=== PATIENT | female | born 1995 | race Caucasian/White ===

== ENCOUNTER → 2019-02-04 | Outpatient (CLI) | payer OTHER ==
[2019-02-04 10:18] VITALS: BP 104/70; PULSE 78; RESP 16; TEMP 98.3; BMI 25.0
--- NOTE | 2019-02-04 10:29 | P.GSHP ---
History of Present Illness H&P Date: 02/04/19 Chief Complaint: right breast mass Brooke is a 23 year old female with a complaint of a mass in her right breast. She noticed a lump in her right breast approximately 2 months ago which is still present. She states that it does not change with her periods in size. And she believes it has increased in size. She did have an ultrasound of the right breast performed on . This did not reveal any specific solid or cystic mass at this site. She states that the right side is uncomfortable all the time and has increased in size over the left side. She has no history of any trauma or infection in her breast. She does not drink any caffeine. She smokes 1/2 PPD, she has been smoking for 6 years. She is exposed is second hand smoke. She eats chocolate every day. she has not noted any correlation between her periods and her breast. The patient has bilateral nipple piercing, she has never had any infections related to the piercing. Family history: none Hormonal History: menarche: 11 G0 periods regular: LMP January 10 BCP: none hormones: none Past surgical history: 1. Tubes in her ears 2. Tonsillectomy Medical history: 1.none Social history: Smoking: One half pack per day Alcohol: Used to drink liquor every day; states a lot: has not had anything for a month Drugs: Occasional marijuana - Constitutional Constitutional: Denies chills, Denies fever - EENT Eyes: denies blurred vision, denies pain Ears: deny: decreased hearing, tinnitus Ears, nose, mouth and throat: Denies headache, Denies sore throat - Breasts Breasts: bilateral: as per HPI - Cardiovascular Cardiovascular: Denies chest pain, Denies shortness of breath - Respiratory Comment: smoker - Gastrointestinal Gastrointestinal: Denies abdominal pain, Denies diarrhea, Denies nausea, Denies vomiting - Genitourinary (Female) Genitourinary: Denies dysuria, Denies hematuria - Menstruation Menstruation: Reports period normal - Musculoskeletal Musculoskeletal: Denies myalgias - Integumentary Comment: multiple tattoos Integumentary: Denies pruritus, Denies rash - Neurological Neurological: Denies numbness, Denies weakness - Psychiatric Psychiatric: Reports anxiety, Denies depression - Endocrine Endocrine: Reports weight change, Denies fatigue - Hematologic/Lymphatic Comment: none - Allergic/Immunologic Allergic/Immunologic: Reports as per HPI Surgical - Exam BMI 25 - General well developed, well nourished, no distress - Eyes normal ocular movement - ENT normal pinna, no hearing loss - Neck no masses, trachea midline - Respiratory normal respiratory effort, clear to auscultation - Cardiovascular Rhythm: regular Heart Sounds: normal: S1, S2 - Abdomen Abdomen: soft, non tender, no guarding, no rigid, no rebound - Integumentary multiple tatoos - Musculoskeletal normal gait, normal posture - Psychiatric oriented to time, oriented to person, oriented to place, speech is normal, memory intact breast exam: Right breast: Multiple positional exam of the right breast reveals fibrocystic changes, the right breast has slightly more glandular tissue apparent in the left was some increased fullness/nodularity in the upper outer quadrant area. This appears to be consistent with fibrocystic changes Right axilla: No adenopathy of concern Left breast: Multi-positional exam fibrocystic changes, no discrete dominant masses or nodules of concern Left axilla: No adenopathy of concern Patient has bilateral nipple. Seen without any evidence of any infection The breast are asymmetric with the right being slightly larger than the left Bra 36B Results Ultrasound report reviewed Assessment and Plan Assessment: Impression: 1. Asymmetry of the breast 2. Nodularity right breast upper outer quadrant area consistent with fibrocystic changes 3. Bilateral nipple piercing 4. Nicotine dependence 5. Anxiety 6. No radiographic evidence of malignancy 7. Suspect the nodularity in the right breast is associated with fibrocystic changes recommend FNA to confirm this and close surveillance Plan: 1. FNA right breast area of increased nodularity 2. Follow-up for results of FNA if this is benign would recommend that the patient be seen again in 6 months time for close surveillance, if patient notes any changes will see sooner CC: Dr. Cheng
--- NOTE | 2019-02-04 10:34 | P.PCN ---
Date of Procedure: 02/04/19 Preoperative Diagnosis: Increased nodularity right breast upper outer quadrant Postoperative Diagnosis: same Procedure(s) Performed: FNA right breast Surgeon: Tonya Martinez Pathology: other (Cytology from 11 o'clock position right breast) Condition: stable Disposition: same day Indications for Procedure: Increased nodularity 11 o'clock position right breast Description of Procedure: The area in the right breast was prepped using alcohol. A 22-gauge needle on a 10 mL syringe was inserted into the area. Applying vacuum several passes were made and cells were obtained. The cells were prepped for pathology. The patient tolerated procedure in stable condition. A sterile Band-Aid was appli ed. The patient will follow next week for results.
== END ==
LOC: WWCWWP 10:02
PROVIDERS: ATTEND Surgery
DX: N63.11 Unspecified lump in the right breast, upper outer quadrant (principal)
CPT/HCPCS: 88173

== ENCOUNTER → 2022-08-13 | Outpatient (CLI) | payer OTHER | END | disposition home or self-care (01) | LOC: RADXRMAIN 16:46 | DX: Z53.9 Procedure and treatment not carried out, unspecified reason (principal) ==

== ENCOUNTER → 2022-08-14 | Outpatient (CLI) | payer OTHER ==
--- NOTE | 2022-08-14 14:34 | XR ---
EXAMINATION TYPE: XR chest 2V DATE OF EXAM: 08/14/2022 COMPARISON: None HISTORY: 26-year-old female 059, cough TECHNIQUE: Frontal and lateral views FINDINGS: The cardiomediastinal silhouette, aorta, and pulmonary vasculature are within normal limits. Lungs an d pleural spaces are clear. IMPRESSION: No acute cardiopulmonary process.
== END | disposition home or self-care (01) ==
LOC: RADXRMAIN 09:59
DX: R05.9 Cough, unspecified (principal)
CPT/HCPCS: 71046

== ENCOUNTER 2023-02-15 06:26 | Emergency (ER) | payer OTHER ==
[2023-02-15 06:37] VITALS: RESP 18
[2023-02-15] MEDS ORDERED: LIDOCAINE 1% INJ 10MG/ML (30 ML VIAL-PF) SQ ONE (07:01)
[2023-02-15] MEDS ORDERED: MORPHINE SULFATE 4 MG/ML SYRINGE IM STA (07:01)
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
[2023-02-15 07:33] LABS: Basophils % (A) 0 %; Eosinophils # (A) 0.1 k/uL (0-0.7); Eosinophils % (A) 1 %; HCT 45.6 % (34.0-46.0); HGB 15.5 gm/dL (11.4-16.0); Lymphocytes # (A) 2.5 k/uL (1.0-4.8); Lymphocytes % (A) 17 %; MCH 29.6 pg (25.0-35.0); Mean Platelet Volume 7.4; Monocytes # (A) 0.5 k/uL (0-1.0); Monocytes % (A) 4 %; Neutrophils # (A) 11.4 k/uL (1.3-7.7); Neutrophils % (A) 78 %; Platelet Count 243 k/uL (150-450); RBC 5.24 m/uL (3.80-5.40); WBC 14.7 k/uL (3.8-10.6)
[2023-02-15 07:42] LABS: ALT 25 U/L (4-34); African American GFR (CKD) >90 (>60 ml/min/1.73 sqM); Albumin 4.3 g/dL (3.5-5.0); Anion Gap 10 mmol/L; Blood Urea Nitrogen 6 mg/dL (7-17); Calcium 8.8 mg/dL (8.4-10.2); Carbon Dioxide 23 mmol/L (22-30); Chloride 110 mmol/L (98-107); Glucose 96 mg/dL (74-99); Non-African American GFR(CKD) >90 (>60 ml/min/1.73 sqM); Sodium 143 mmol/L (137-145); Total Bilirubin 0.9 mg/dL (0.2-1.3); Total Protein 7.3 g/dL (6.3-8.2)
[2023-02-15 07:44] LABS: INR 0.9 (<1.2); Partial Thromboplastin Time 23.3 sec (22.0-30.0)
[2023-02-15 07:46] LABS: AST 37 U/L (14-36); Alcohol 165 mg/dL; Alkaline Phosphatase 49 U/L (38-126); Potassium 4.3 mmol/L (3.5-5.1)
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
[2023-02-15] MEDS ORDERED: DIPH,PERTUS(ACELL)TETVAC-LF 0.5 ML VIAL IM ONE (08:33)
[2023-02-15 08:50] VITALS: BP 118/76; PULSE 98; TEMP 97.8
== END 2023-02-15 08:50 | disposition home or self-care (01) ==
LOC: EC 06:26
DX: S21.311A Laceration without foreign body of right front wall of thorax with penetration into thoracic cavity, initial encounter (principal); S00.12XA Contusion of left eyelid and periocular area, initial encounter; F12.90 Cannabis use, unspecified, uncomplicated; Z86.59 Personal history of other mental and behavioral disorders; Z88.0 Allergy status to penicillin; Y04.8XXA Assault by other bodily force, initial encounter
CPT/HCPCS: 36415; 80053; 85025; 85610; 85730; 80320; 71045; 70486; 70450; 99285; 96372; 12001; J2270; J2001